=== PATIENT | male | born 1955 | race Caucasian/White ===

== ENCOUNTER 2022-12-15 14:44 | Emergency (ER) | payer MEDICARE, SELFPAY ==
[2022-12-15 15:04] VITALS: BP 128/78; PULSE 70; RESP 20; TEMP 36.4; O2SAT 97; BMI 28.3
--- NOTE | 2022-12-15 15:21 | CRLHL7_ITS ---
For Patients: As a result of the Cures Act, medical imaging exams and procedure reports are released immediately into your electronic medical record. You may view this report before your referring provider. If you have questions, please contact your health care provider. INDICATION: Injury. TECHNIQUE: Three views of the right shoulder. FINDINGS: No acute right shoulder fracture or dislocation. Glenohumeral joint appears normal. Minimal AC joint arthrosis. Dictated by Trev Carpenter MD @ 12/15/2022 4:24:06 PM (Electronically Signed)
--- NOTE | 2022-12-15 16:04 | ED.GENADULT ---
HPI - General Adult General Date Seen: 12/15/22 Chief complaint: Shoulder Injury/Pain Stated complaint: R shoulder injury Time Seen by Provider: 12/15/22 15:20 History of Present Illness HPI narrative: This is a pleasant 67-year-old gentleman accompanied to the ER today by his for evaluation of right shoulder pain and acute right shoulder injury. He does not have any previous history of shoulder problems. He was on the floor of his garage this afternoon working on his car. He was pulling with a break her bar to break and not loose when he abruptly felt something grinding and pain in his shoulder. He has had shoulder pain ever since then. It is not too painful if he holds still but it is exquisitely painful if he tries to move it in any direction. For instance be tries to flex it forward or abducted from his body it hurts too much to move. He does not feel like his shoulder is clicking or locking, it just hurts when he tries to move. He is not really able to localize the site of pain. He does not recall any tearing or any pain down his biceps. No pain in the clavicle. No pain in the shoulder blade. No neck pain or pain radiating down his arm. It is not swollen or bruised. No other injuries. Related Data Allergies Allergy/AdvReac Type Severity Reaction Status Date / Time No Known Drug Allergies Allergy Verified 12/15/22 15:04 [facility] Social History Smoking Status: Former smoker Do you use any of these nicotine containing products: None Second hand tobacco smoke exposure: No How often do you have a drink containing alcohol: 2-3 times a week How many standard drinks containing alcohol do you have on a typical day: 3 or 4 How often do you have six or more drinks on one occasion: Less than monthly AUDIT-C Alcohol total score: 5 Non-prescribed substance use: denies use service: No Exam Narrative: Exam Narrative: Constitutional: Appears well-developed and well-nourished. Alert. Conversant. Non toxic. Comfortable in this he tries to move his shoulder, which causes and a grimace in pain. HENT: Head: Atraumatic. Nose: Nose normal. Mouth/Throat: Oral mucosa is clear and moist. no trismus. Eyes: Conjunctivae normal. EOM normal. Pupils equal, round, and reactive to light. No scleral icterus. Neck: Normal range of motion. Neck supple. No tracheal deviation present. Cardiovascular: Normal rate, regular rhythm. No gallop. No friction rub. No murmur heard. Symmetric radial artery pulses Pulmonary/Chest: Effort normal. No stridor. No respiratory distress. No wheezes. No rales. No rhonchi . Musculoskeletal: RUE: No obvious deformity or squaring off of the shoulder when compared to the left. No bruising. No redness. No swelling. Clavicle nontender. Scapular spine and scapular body nontender. Ridge of the shoulder and trapezius nontender. No definite focal tenderness over the AC joint. No tenderness over the proximal humerus. No obvious tenderness or swelling around the biceps tendon insertion. Range of motion the shoulder is limited by pain. He is able to abduct perhaps 10? and flex perhaps 20? but this limited beyond that due to pain. With passive range of motion I am able to flex him up to about 45 and abduct to nearly 45 before pain sets in. Humerus nontender. Body of the biceps is nontender. No obvious contraction of the biceps to suggest a biceps tendon avulsion. Triceps nontender. Elbow has no tenderness and Normal range of motion. Forearm, wrist, hand are nontender. LUE: Normal range of motion. No tenderness. No deformity RLE: Normal range of motion. No edema. No tenderness. No deformity LLE: Normal range of motion. No edema. No tenderness. No deformity Neurological: Alert and oriented to person, place, and time. Normal strength. CN II-VII intact. No sensory deficit. GCS eye subscore is 4. GCS verbal subscore is 5. GCS motor subscore is 6. 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 No rash noted. No pallor. Normal capillary refill. Psychiatric: Normal mood. Normal affect. Const: Vital Signs, click to edit/add: Vital Signs - 24 hr 12/15/22 15:04 Temperature 97.5 F L Pulse Rate [Pulse Oximeter] 70 Respiratory Rate 20 Blood Pressure [Le ft Upper Arm] 128/78 Pulse Oximetry 97 Oxygen Delivery Me thod Room Air Course Vital Signs Vital signs: Initial Vital Signs Temperature 97.5 F L 12/15/22 15:04 Temperature Source Temporal Artery Scan 12/15/22 15:04 Pulse Rate 70 12/15/22 15:04 Pulse Rhythm Regular 12/15/22 15:04 Respiratory Rate 20 12/15/22 15:04 Blood Pressure 128/78 12/15/22 15:04 Blood Pressure Mean 94 12/15/22 15:04 Blood Pressure Position Sitting 12/15/22 15:04 Pulse Oximetry 97 12/15/22 15:04 Oxygen Delivery Method Room Air 12/15/22 15:04 Vital Signs Temperature 97.5 F L 12/15/22 15:04 Pulse Rate 70 12/15/22 15:04 Respiratory Rate 20 12/15/22 15:04 Blood Pressure 128/78 12/15/22 15:04 Pulse Oximetry 97 12/15/22 15:04 Oxygen Delivery Method Room Air 12/15/22 15:04 Temperature 97.5 F L 12/15/22 15:04 Pulse Rate 70 12/15/22 15:04 Respiratory Rate 20 12/15/22 15:04 Blood Pressure 128/78 12/15/22 15:04 Pulse Oximetry 97 12/15/22 15:04 Oxygen Delivery Method Room Air 12/15/22 15:04 Medical Decision Making [facility] Narrative Medical decision making narrative: Very pleasant 67-year-old gentleman presenting to the ER today with acute onset right shoulder pain after he injured it while pulling on a break her bar in his garage this afternoon. He is describing a grinding sensation in his shoulder joint when he tries to move it associated with a lot of pain. Fortunately exam and x-rays are negative for any evidence for glenohumeral joint dislocation, AC separation, or any obvious fracture. No associated neck pain to suggest a cervical radiculopathy. No evidence for any DVT or acute limb ischemia in the arm. With a clear injury causing the pain I do not think this shoulder pain indicates Cates referred pain from ACS or other cardiovascular problems. Concern here is for probable internal derangement of the shoulder such as rotator cuff or labral tear. We will mobilize in the sling. Pain control with hydrocodone via [employer]. Opiate precautions reviewed. He will need close outpatient follow-up with orthopedics for re-evaluation and potential MRI for further treatment. Patient verbalizes understanding. In-situ meds prescription for [place] 5/325 mg-12 tablets Imaging Data xr right shoulder: Attestation: I have reviewed the pertinent imaging results. My impression: No acute fracture or dislocation Radiologist's impression: FINDINGS: No acute right shoulder fracture or dislocation. Glenohumeral joint appears normal. Minimal AC joint arthrosis. Discharge Plan Discharge Clinical Impression: Injury of right shoulder Patient Disposition: Home, Self-Care Condition: Stable Instructions: How to Use a Sling (ED), Shoulder Pain (ED) Additional Instructions: Please follow-up with the [facility] as soon as possible. Call Saturday at [phone] schedule an ER follow-up appointment for your shoulder. Wear the sling for comfort when you are up and around. Remove the sling at least once per day and perform gentle nasdz-sm-gfkzxp exercises with her shoulder ( small circles or figure eights) to avoid shoulder stiffness and frozen shoulder. Use phiv-rgv-oppumwl medications such as Tylenol ibuprofen if needed for pain. For pain uncontrolled by those medications use the prescription pain killer. Use caution with pain killers because they can cause drowsiness, sedation, constipation, and can be addictive. If you have worsening pain or uncontrolled pain, or any other concerns, come back to the ER right away. Follow Up/Referrals: Giovanny Tomlin MD [Primary Care Provider] - Stand Alone Forms: Airpush Info Instructions
[2022-12-15] MEDS: ONDANSETRON ODT 4 MG TAB PO (16:15)
[2022-12-15] MEDS: HYDROCODONE-ACETAMIN 5-325 MG 1 TAB PO (16:15)
== END 2022-12-15 17:27 | disposition home or self-care (01) ==
PROVIDERS: Emergency Provider Emergency Medicine; PCP Surgery
DX: S49.91XA Unspecified injury of right shoulder and upper arm, initial encounter (principal)
CPT/HCPCS: 73030; 99283; A9270

== ENCOUNTER 2022-12-24 13:34 | Outpatient (CLI) | payer MEDICARE, SELFPAY ==
--- NOTE | 2022-12-24 13:45 | MR_ITS ---
[facility] [address] [facility] [address] Phone:?[phone] Fax:?[phone] Referring Physician Information: Tino Olson M.D. [id number] [address] Phone:?[phone] Fax:?[phone] Patient:Mike Garces D.O.B:?1955 Sex:?Male Phone:?[phone] [facility] MRN:?[id number] Exam Date:?12/24/2022 EXAM: MRI of the RIGHT SHOULDER, without contrast CLINICAL: Right shoulder injury. Evaluate for rotator cuff tear. COMPARISONS: X-rays dated 12/15/2022. TECHNICAL: Multiplanar multisequence MRI of the right shoulder was obtained. SEDATION: None. CONTRAST: None. FINDINGS: Rotator cuff: Supraspinatus/Infraspinatus: There is full-thickness tearing of the majority of the distal supraspinatus tendon extending into the anterior distal infraspinatus tendon as seen on coronal series 4 images 11-15, with retraction of torn tendon fibers by approximately 16 mm. Marked attenuation of the remaining anterior distal supraspinatus tendon. Moderate tendinosis and partial interstitial tearing of the remainder of the infraspinatus tendon. No evidence of significant fatty atrophy of the muscle bellies at this time. Teres minor: No tendinosis, tear or atrophy. Subscapularis: Mild tendinosis and superimposed partial interstitial insertional tearing of the distal tendon. Mild fatty atrophy involving the superior muscle belly. Bursae: Subacromial-subdeltoid: Increased bursal fluid likely secondary to full- thickness rotator cuff tendon tearing. Subcoracoid: No significant bursal fluid. Coracoacromial arch: Acromion morphology: Type II. No os acromiale. Acromiohumeral space: Mildly narrowed. Coracohumeral space: Within normal limits. Biceps tendon, long head: There is moderate tendinosis and mild partial interstitial tearing of the intra-articular tendon with partial tearing extending into the imaged proximal extra-articular tendon. Mild medial positioning of the tendon as it extends along the superior aspect of the bicipital groove, without dislocation. Glenohumeral joint: Physiologic volume of joint fluid. Articular cartilage: No discrete chondral defects identified. Capsule: No convincing evidence of capsular thickening or injury. Labrum: There is attenuation and tearing throughout the superior labrum and throughout the posterior labrum. No perilabral cyst identified. Bones: No suspicious marrow signal alteration, fracture or dislocation. Acromioclavicular joint: Moderate changes of arthrosis. No AC joint injury/widening. IMPRESSION: 1. Full-thickness tearing of the majority of the distal supraspinatus tendon extending into the anterior distal infraspinatus tendon with retraction of torn tendon fibers by approximately 16 mm. Marked attenuation of the remaining anterior distal supraspinatus tendon and there is tendinosis and partial tearing of the remainder of the infraspinatus tendon. 2. Mild tendinosis with superimposed partial interstitial insertional tearing of the distal subscapularis tendon. 3. Moderate tendinosis and mild partial interstitial tearing of the intra- articular long head biceps tendon with partial tearing extending into the imaged proximal extra articular tendon. Mild medial positioning of the long head biceps tendon in relation to the bicipital groove. 4. Attenuation and tearing throughout the superior labrum and throughout the posterior labrum. 5. Moderate AC joint arthrosis. [facility] Electronically signed on 12/25/2022 8:42:00 AM by Juan J Heck D.O.
== END 2022-12-24 13:35 | disposition home or self-care (01) ==
LOC: MRI 13:34
PROVIDERS: PCP Surgery; Visit Provider Orthopaedic Surgery
DX: M25.511 Pain in right shoulder (principal); M75.101 Unspecified rotator cuff tear or rupture of right shoulder, not specified as traumatic; S46.211A Strain of muscle, fascia and tendon of other parts of biceps, right arm, initial encounter; M19.011 Primary osteoarthritis, right shoulder; S43.431A Superior glenoid labrum lesion of right shoulder, initial encounter; S49.91XA Unspecified injury of right shoulder and upper arm, initial encounter
CPT/HCPCS: 73221

== ENCOUNTER 2023-01-04 06:03 | Day surgery (SDC) | payer MEDICARE, SELFPAY ==
[2023-01-04] VITALS (13 sets, daily range): BP systolic 96–124; BP diastolic 51–71; PULSE 65–84; RESP 16–20; TEMP 36.1–36.5; O2SAT 92–97; BMI 28.3
[2023-01-04] MEDS: LACTATED RINGERS 1000 ML 1,000 ML 100 ML IV (06:45)
[2023-01-04] MEDS: SODIUM CHLORIDE 0.9 % (FLUSH) 10 ML SYRINGE IVF (06:45)
--- NOTE | 2023-01-04 07:20 | W.PM.H&PU ---
History & Physical Update History & Physical Update H&P Reviewed and patient assessed: No changes noted
[2023-01-04] MEDS: MIDAZOLAM HCL 1 MG/ML inj IVP (07:25)
[2023-01-04] MEDS: fentaNYL 100 MCG/2 ML inj IVP (07:25)
--- NOTE | 2023-01-04 07:30 | SUR.PREOP ---
TIME?OUT:?20, right shoulder PT/RN/MDA?VERIFICATION?OF?SURGICAL?SITE,?PROCEDURE,?AND?CONSENT OBTAINED?PRIOR?TO?INVASIVE?PROCEDURE.
[2023-01-04] MEDS: CEFAZOLIN 2 GM INJ IVP (07:59)
[2023-01-04] MEDS: EPINEPHrine 1 MG in SODIUM CHLORIDE IRRIG SOLUTION 3,000 ML 9003 MG IRRIGATION ×6 (08:18→09:50)
--- NOTE | 2023-01-04 09:49 | PM.ORPRC ---
Procedure Note Date of procedure: 01/04/23 Procedure: PREOPERATIVE DIAGNOSES: 1. Right shoulder rotator cuff tear. 2. Right shoulder long head biceps tendinosis. 3. Right shoulder subacromial impingement syndrome. POSTOPERATIVE DIAGNOSES: 1. Right shoulder rotator cuff tear - supraspinatus and upper subscapularis 2. Right shoulder partial-thickness tear long head biceps tendon 3. Right shoulder subacromial impingement syndrome. NAME OF OPERATION: 1. Right shoulder arthroscopic rotator cuff repair. 2. Right shoulder arthroscopic biceps tenodesis 3. Right shoulder arthroscopic limited debridement of glenohumeral joint 4. Right shoulder arthroscopic subacromial decompression and bursectomy SURGEON: Cezar Olson MD DIGITAL CIRCUIT DESIGNER: Patience Menjivar P.A.-C. An phlebotomist medical lab assistant was critical for this case to aide in patient positioning, suture manipulation, arm positioning, instrument positioning, and closure. ANESTHESIA: General plus preoperative supraclavicular block. IMPLANTS: Arthrex knotless FiberTak anchors x2; Arthrex 4.75 mm knotless BioComposite SwiveLock anchor x1; Arthrex 4.75 mm BioComposite SwiveLock anchor x1; Arthrex 5.5 mm BioComposite SwiveLock anchor x1 COMPLICATIONS: None ESTIMATED BLOOD LOSS: 10 mL INDICATIONS: The patient is a pleasant, 67-year-old male who developed right shoulder pain and weakness following injury that he sustained approximately 1 month ago. Physical exam and imaging were consistent with a rotator cuff tear. Given these findings, as well as the weakness and pain, and failure to improve with nonoperative management, recommendation was made for surgery. FINDINGS: Exam under anesthesia revealed stable shoulder with full range of motion. The diagnostic arthroscopy revealed healthy chondral surfaces of the glenohumeral joint.. The Subscapularis tendon demonstrated partial-thickness tearing of the upper border. The long head of the biceps tendon was degenerative with partial-thickness tearing involving greater than 50% of the tendon thickness. The rotator cuff tendon was found to have a full-thickness tear of the supraspinatus which was retracted medially 1-2 cm. The infraspinatus was intact. The labrum was degenerative plate in the anterior, superior, and posterior aspects. No loose bodies were identified within the pouch or subscapularis recess. PROCEDURE: Following a thorough discussion of risks, benefits, and alternatives, consent was obtained and the operative shoulder was marked. A supraclavicular nerve block was performed by anesthesia staff in preop holding. The patient was brought to the operating room and placed supine on the operating table. Induction of anesthesia was completed, and patient was given IV Ancef preoperatively for prophylaxis. A surgical time-out was performed confirming patient identity, surgical site, and procedure. Patient was placed into the beach chair position. Head was placed in padded head of marketing adometry in neutral alignment, and all bony prominences were well padded. The operative shoulder and upper extremity were prepped and draped in the appropriate sterile fashion using ChloraPrep. The glenohumeral joint was injected with 40 mL of normal saline using an 18g spinal needle from a posterior approach. Posterior portal was established. Anterior portal was established after localization with a spinal needle and a 7.0 mm cannula was placed here. Diagnostic arthroscopy was then performed with findings as noted above.. The shaver was then inserted and allowed debridement of the anterior, superior, and posterior labrum. The long head of the biceps tendon was also debrided. Following this, decision was made to move forward with biceps tenodesis given the significant tendinosis and partial-thickness tearing of the intra-articular portion of the long head of the biceps tendon. Switch to suture Passer was used to pass a FiberLoop suture tape around and through the biceps tendon. Biceps tenotomy was then performed at the biceps attachment to the superior labrum. Biceps tenodesis was completed using a 4.75 mm SwiveLock anchor in the upper aspect of the bicipital groove. The upper subscapularis was noted be partially torn. His foot was debrided with a shaver. Upper subscap repair was completed using the knotless sutures from the previously placed biceps tenodesis SwiveLock anchor. After shuttling 1 of the sutures through the tendon the knotless sutures were tensioned securing the upper subscapularis back to its footprint. After appropriate tension and had been applied the subscapularis was reduced in its anatomic position. Remnant suture was cut and removed. The camera was then moved to the subacromial space. Lateral portal was established after localization with spinal needle. Subacromial bursectomy was performed using the arthroscopic shaver and electrocautery. Acromioplasty was performed using the bone-cutting shaver removing a bone spur from the anterior aspect of the acromion. Attention was then directed to the rotator cuff tear which was torn and retracted medially. The supraspinatus footprint was debrided of soft tissue and lightly decorticated using a bone-cutting shaver. Next 2 small stab incisions were placed off the lateral border of the acromion. Through these incisions knotless FiberTak suture anchors were placed in the anterior medial and posterior medial aspects of the supraspinatus footprint. A FiberLink suture was then used to pass the sutures through the supraspinatus tendon lateral to the musculotendinous junction. Knotless sutures were then used to complete the medial row repair. Lateral row repair was completed by placing 1 4.75 mm SwiveLock anchor and 1 5.5 mm SwiveLock anchor lateral to the supraspinatus footprint. Prior to securing these anchors FiberLink sutures were placed in the anterior cuff and posterior cuff. Each SwiveLock anchor contained 1 set of sutures from the previously placed medial row anchors and 1 FiberLink suture. Sutures were then tensioned and swivel locks were secured into position. Excellent securing of the rotator cuff was achieved with good tension on the cuff. Remnant sutures were cut and removed. The shoulder was placed through range of motion and found to be stable. The rotator cuff was re-probed and found to be stable. Instruments were removed. Excess fluid was drained, closure performed with 3-0 nylon simple type sutures. Dressings were applied. Sling was applied. The patient was awoken from anesthesia and transferred to the PACU in stable condition. PLAN: 1. Discharged to home day of surgery. 2. Ice for pain and swelling. 3. Tylenol and oxycodone as needed for pain control. 4. Abduction sling at all times except for ROM and showering. -Remove sling several times daily for pendulum exercises finger, wrist, and elbow range of motion. 5. Follow-up in orthopedic clinic in 10-14 days for wound check and suture removal. 6. Will initiate formal physical therapy 2 weeks postoperatively per the standard rotator cuff repair protocol.
--- NOTE | 2023-01-04 10:17 | W.ANESCHARGE ---
Anesthesia Charges Start Date/Time Anesthesia Start Date: 01/04/23 Anesthesia Start Time: 07:35 Stop Date/Time Anesthesia Stop Date: 01/04/23 Anesthesia Stop Time: 10:15
--- NOTE | 2023-01-04 12:49 | W.PM.NB ---
Nerve Block Nerve Block Time Seen by Provider: 07:26 Date Seen: 01/04/23 Type of block requested by surgeon for post-operative analgesia: supraclavicular Side: right Time out performed: Yes Verification of patient name: Yes Verification of date of : Yes Site marking: site marked Name of person performing procedure: Gopal Continuous monitoring Was continuous monitoring of O2 sat, B/P, electronic device monitor, recorded every 15 minutes?: Yes Procedure Checklist: sterile prep, needles and gloves Ultrasound guided. Images saved: Yes Medications given in 5ml increments after negative aspiration: Ropivicaine %: 0.5 mL: 20 Needle gauge: 22 Decadron (mg): 10 Precedex (mcg): 25 Patient tolerated procedure well: Yes Block Charges Block Charge (with Pro Fee): Brachial Plexus Use of Ultrasound Machine for Block: Yes- US Guidance/pain block
== END 2023-01-04 12:27 | disposition home or self-care (01) ==
PROVIDERS: PCP Surgery; Visit Provider Orthopaedic Surgery
PROC: (CPT 29805; principal; 2023-01-04 07:30)
DX: M75.101 Unspecified rotator cuff tear or rupture of right shoulder, not specified as traumatic (principal); M75.21 Bicipital tendinitis, right shoulder; M75.41 Impingement syndrome of right shoulder; G89.18 Other acute postprocedural pain; E11.9 Type 2 diabetes mellitus without complications
CPT/HCPCS: 29827; 29828; 29826; 29822; 01630; 64415; 76942; 82962; C1713; J0171; J0330; J0690; J1100; J2250; J2371; J2405; J2704; J2795; J3010; J3490; J7120; L3670

== ENCOUNTER 2023-05-06 10:11 | Outpatient (CLI) | payer MEDICARE, SELFPAY ==
--- NOTE | 2023-05-06 11:54 | W.ANESCHARGE ---
Anesthesia Charges Start Date/Time Anesthesia Start Date: 05/06/23 Anesthesia Start Time: 11:19 Stop Date/Time Anesthesia Stop Date: 05/06/23 Anesthesia Stop Time: 11:52
--- NOTE | 2023-05-06 12:03 | W.ANESCHARGE ---
Anesthesia Charges Start Date/Time Anesthesia Start Date: 05/06/23 Anesthesia Start Time: 11:19 Stop Date/Time Anesthesia Stop Date: 05/06/23 Anesthesia Stop Time: 11:52
== END 2023-05-06 10:12 | disposition home or self-care (01) ==
LOC: OP CLINIC 10:11
PROVIDERS: PCP Surgery; Visit Provider Internal Medicine Gastroenterology
DX: Z12.11 Encounter for screening for malignant neoplasm of colon (principal); K63.5 Polyp of colon; Z86.010 Personal history of colon polyps
CPT/HCPCS: 00811; 45380; 88305; J2704

== ENCOUNTER 2023-05-29 09:30 | Outpatient (RCR) | payer MEDICARE, SELFPAY ==
--- NOTE | 2023-01-17 12:27 | PT.OPEX ---
PT [place] Outpatient Eval initial eval requires signature PT [facility] Outpatient Eval Start: 01/17/23 07:28 Freq: Status: Active Protocol: Document 01/17/23 07:29 ZACK (Rec: 01/17/23 12:14 ZACK [id number]) E-signed By Gaurang Curmp DPT Physical Therapy Outpatient Evaluation Insurance Information Recert Due Date 04/12/23 Insurance Name Medicare B,Blue Cross/[employer] Shield Medical Diagnosis R shoulder scope with RCR( supra and upper sub scap) SAD 01/04/23-sp 2 weeks Treating Diagnosis R shoulder pain Muscle weakness Referring MD Johnson Subjective Subjective Dwight comes into clinic 2 weeks post R shoulder surgery- RCR SAD. States this started when he was working on his car and 'cranking' on a [place] where he felt/heard a pop. Since surgery pt states things are going well overall with minimal pain. Does find sleeping difficult but he expected that. He does feel like the left shoulder is getting a little overworked some. His big goal is just to get back to normal level of activities that he was doing prior to surgery. Date of Surgery (If applicable) 01/04/23 Current Work Status Retired Precautions Treatment Precautions/Contraindications FLEXION-SCAPTION TO 90 DEGREES , ER NEUTRAL, SLING WITH ABDUCTION PILLOW -6 WEEKS Objective Other/Pertinent Objective SHOULDER AROM on L is WNL , PROM on R -mild guarding Flexion: R 95 degrees before pain Abduction: R 90 degrees before pain External Rotation: R can reach neutral without limits or pain, NECK/SHOULDER MMT: deferred due to precautions WNL on L [place] HEP code [id number] Functional Test Performed & Score QUICK DASH: 86.4 % Assessment Assessment/Impression POST-OP Patient presents with signs and symptoms consistent with diagnosis of RCR SAD, s/p 2 week post operative. Rehab potential is good. [place]a impairments include: decreased ROM and strength of the extremity, pain/limitations with functional activities such as reaching lifting sleeping pushing pulling. Skilled PT is required to address these mesa impairments and to provide and progress with an appropriate home exercise program. 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 within 6-8 weeks Pt will score 60-70% Quick dash objective measure within 6-8 %weeks to demonstrate functional improvements in daily living, pain symptoms, and functional independence .? ? 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 Pt will be able to demonstrate / report ability to lift #5 from counter height to overhead without pain within 14-16 weeks, for household and work activity. Coordination/Communication With Referral Source Treatment Plan/Direct Interventions Joint Mobilization,Manual Therapy,Neuromuscular Re-ed, Self-Care/Home Management, Therapeutic Activities, Therapeutic Exercises Frequency/Duration 1-2 VISITS A WEEK FOR 14-20 WEEKS Patient Will Be Discharged From Therapy Completion of LTG(s), Independent w/HEP, Independently Progressing Evaluation Billing Untimed Code Treatment Minutes 15 Complexity Low Certification Information Physician Comment/Change : Physician NPI Number #
--- NOTE | 2023-03-21 11:24 | PT.OPDNX ---
PT [facility] Outpatient Daily Note PROGRESS NOTE PT [facility] Out[facility] Daily Note Start: 01/17/23 07:28 Freq: Status: Active Protocol: Document 03/21/23 07:38 ZACK (Rec: 03/21/23 11:20 [email or web address] [id number]) E-signed By Gaurang Crump DPT PT [facility] Daily Progress Note Visit Information Note Type Daily Note,Recert/Progress Note Visit Number 10 Insurance Information Recert Due Date 04/12/23 Insurance Name Medicare B,Blue Cross/Blue Shield Medical Diagnosis R shoulder scope with RCR( supra and upper sub scap) SAD 01/04/23-sp ~ 10 weeks Treating Diagnosis R shoulder pain Muscle weakness Referring MD Johnson Subjective Subjective Dwight states he feels like the shoulder is doing pretty well overall does notice some irritation with abd-er iso. Precautions Treatment Precautions/Contraindications week 8:AAROM-AROM , rhythmic stabilization-IR/ER 45 deg scap plane, flexion 100 degrees , shoulder isometrics, Home Exercise Home Exercise Comments [place] HEP code [id number] Objective Other/Pertinent Objective SHOULDER AROM on R Flexion: R 150 moderate shrugging Abduction: R 140- compensation into scapular plane External Rotation: R55 Internal Rotation: R L1 Functional Test Performed & Score QUICK DASH: 54.5 %(02/14/23), 47.7% (03/21/23) Patient Instructed in Risks/Benefits Yes Therapeutic Exercise Therapeutic Exercise Minutes (minutes) 40 Therapeutic Exercise: To Restore ube x 5 min fwd -back Functional Status wand flexion x 10, scaption x 10 - standing wand flexion #2 2x 10 cueing to avoid shrug AG shoulder flexion x12AG GUERLINE hrz abd at 45 degrees x 15 AG GUERLINE ext 2x15 AG UT stretch 8x20 sec holds SA ball punches 2x 10 shoulder ER stretch at door way 5 x 10 sec holds Treatment Minutes Untimed Code Treatment Minutes 5 Timed Code Treatment Minutes 40 Total Treatment Time 45 Billing Units Therapeutic Exercise Units 3 Assessment/Impression Assessment/Impression Patient is a 67 year old male that presents with R shoulder pain post RCR. Patient's Quick dash improved by 54.5% to 47.7%. Patient has shown improvement in PT demonstrating decreased pain, increased range of motion, increased strength, and increased tolerance to activity. Patient continues to present with pain, decreased ROM, decreased strength, and decreased tolerance to activity. Patient would benefit from continued skilled PT services to address these issues and to maximize function. 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 within 6-8 weeks - nm Pt will score 60-70% Quick dash objective measure within 6-8 %weeks to demonstrate functional improvements in daily living, pain symptoms, and functional independence .? ? LTG Pt will be independent with HEP within 14-16 weeks to allow for independence and continued improvement past formal therapy nm Patient will demonstrate/ report ability to reach to 150 degrees shoulder flexion and abduction with pain level <1/ 10, to allow for analytics leader, hygiene, work within 14-16 weeks nm Pt will score 10-20% Quick dash objective measure within 14-16 weeks to demonstrate functional improvements in daily living, pain symptoms, and functional independence .? nm Pt will be able to demonstrate / report ability to lift #5 from counter height to overhead without pain within 14-16 weeks, for household and work activity. nm Daily Plan of Care Continue per POC Discharge Note Date of First Visit for Therapy 01/17/23 Initial Primary Functional Limitations lifting reaching pushing pulling Initial Pain Level 1/10
== END 2023-07-31 09:51 | disposition home or self-care (01) ==
PROVIDERS: PCP Surgery; Visit Provider Orthopaedic Surgery
DX: S46.011D Strain of muscle(s) and tendon(s) of the rotator cuff of right shoulder, subsequent encounter (principal); Z51.89 Encounter for other specified aftercare
CPT/HCPCS: 97110; 97140; 97161